=== PATIENT | female | born 1955 | race Caucasian/White ===

== ENCOUNTER 2021-01-09 14:16 | Emergency (ER) | payer MEDICAID, OTHER ==
[~2021-01-09] VITALS: Ht 167.6 cm; Wt 83.0 kg
[2021-01-09 14:30] VITALS: BP 121/87
== END 2021-01-09 15:32 | disposition left against medical advice (07) ==
LOC: EDBD 14:16 → ER 14:16
DX: M54.2 Cervicalgia (principal); M54.5 Low back pain; Z53.21 Procedure and treatment not carried out due to patient leaving prior to being seen by health care provider